=== PATIENT | female | born 1955 | race Caucasian/White ===

== ENCOUNTER 2017-08-09 11:52 | Day surgery (SDC) | payer BC ==
[~2017-08-09 11:52] MED LIST: Lactated Ringers 1,000 ML IV SCH; Sodium Chloride 0.9% 10 ML Syringe FLUSH PRN
--- NOTE | 2017-08-09 12:27 | PCM.PN ---
- General Info Date of Service: 08/09/17 - Review of Systems Systems Review Comment:: 62-year-old female with history of colon polyps here today for surveillance colonoscopy. She states that her bowels have recently been moving normally and she has not seen any bleeding. She is medically stable to proceed today. Her recent history and physical is reviewed and there is no significant changes. I have discussed the proposed colonoscopy with the patient. She agrees to proceed accepting risks. - Patient Data Vitals - Most Recent: Last Vital Signs Temp 97.7 F 08/09/17 12:24 Pulse 56 L 08/09/17 12:24 Resp 18 08/09/17 12:24 BP 133/70 08/09/17 12:24 Pulse Ox 97 08/09/17 12:24 Weight - Most Recent: 107.955 kg Med Orders - Current: Current Medications Lactated Ringer's (Ringers, Lactated) 1,000 mls @ 125 mls/hr IV ASDIRECTED YANI Sodium Chloride (Saline Flush) 10 ml FLUSH ASDIRECTED PRN PRN Reason: Keep Vein Open - Problem List Review Problem List Initiated/Reviewed/Updated: Yes - Assessment Assessment:: History of colon polyps - Plan Plan:: Colonoscopy
[2017-08-09] MEDS ORDERED: Propofol 200 MG/20 ML SDV ONE ×3 (12:35→12:36)
--- NOTE | 2017-08-09 13:19 | PCM.OPNOTE ---
- General Post-Op/Procedure Note Date of Surgery/Procedure: 08/09/17 Operative Procedure(s): Colonoscopy with Polypectomy Findings: Multiple Left colon polyps Moderate Sigmoid Diveticulosis Pre Op Diagnosis: history of colon polyps Post-Op Diagnosis: Colon Polyps. Diverticulosis Anesthesia Technique: MAC Primary Surgeon: Danny Hewitt Pathology: Colon Polyps Output, Urine Amount: 0 EBL in mLs: 0 Complications: None Condition: Good
[2017-08-09 14:05] VITALS: BP 135/75
--- NOTE | 2017-08-10 08:43 | OR ---
Date of Procedure: 08/09/2017 PREOPERATIVE DIAGNOSIS: History of colon polyps. POSTOPERATIVE DIAGNOSES: Colon polyps and diverticulosis. OPERATIONS PERFORMED: Colonoscopy with polypectomy. INDICATIONS FOR SURGERY: This 62-year-old female has a known history of colon polyps. She comes today for surveillance colonoscopy. FINDINGS: Two polyps were noted on today's exam. There was a 7-mm sessile polyp noted in the descending colon, 40 cm from the anal verge. There was an 8- mm semi-pedunculated polyp noted in the sigmoid colon, 30 cm from the anal verge. The patient also has a moderate degree of sigmoid diverticulosis. DESCRIPTION OF PROCEDURE: The patient was taken to the operating room. She was given intravenous sedation, and with her in the left lateral decubitus position, digital rectal exam was performed showing no rectal masses. The Olympus colonoscope was inserted into the rectum. Retroflexed examination of the rectal canal was performed. The scope was then carefully advanced under direct visualization through the entire length of the colon until the cecum was reached. Cecal acquisition was confirmed by noting the normal internal cecal anatomy including the appendiceal orifice and ileocecal valve. The light was also noted to transilluminate the abdominal wall in the right lower quadrant. The ileocecal valve was cannulated and the terminal ileum examined and this appeared normal. The scope was then withdrawn slowly re-examining the colonic segments. During withdrawal of the scope, the above-described polyps were identified. These were removed with cautery snare and retrieved. Examination was then completed, and with no sign of any bleeding or other complication and after the entire colon and rectum had been fully examined, the scope was removed and the patient was taken from the operating room in satisfactory condition. ESTIMATED BLOOD LOSS: Zero. COMPLICATIONS: None. PROGNOSIS: Good. CARO Hewitt MD /[id number]
== END 2017-08-09 14:30 | disposition home or self-care (01) ==
LOC: LL.SDS 11:52
PROVIDERS: ATTEND Surgery
DX: Z12.11 Encounter for screening for malignant neoplasm of colon (principal); D12.4 Benign neoplasm of descending colon; D12.5 Benign neoplasm of sigmoid colon; K57.30 Diverticulosis of large intestine without perforation or abscess without bleeding; E11.9 Type 2 diabetes mellitus without complications; I10 Essential (primary) hypertension; I25.10 Atherosclerotic heart disease of native coronary artery without angina pectoris; I25.2 Old myocardial infarction; E66.9 Obesity, unspecified; F32.9 Major depressive disorder, single episode, unspecified; F17.200 Nicotine dependence, unspecified, uncomplicated; Z90.49 Acquired absence of other specified parts of digestive tract; Z95.5 Presence of coronary angioplasty implant and graft; Z79.4 Long term (current) use of insulin; Z79.82 Long term (current) use of aspirin; Z79.899 Other long term (current) drug therapy; Z86.010 Personal history of colon polyps
CPT/HCPCS: J2704; J7120